=== PATIENT | male | born 1980 | race American Indian/Alaskan Native ===

== ENCOUNTER 2019-05-13 08:25 | Emergency (ER) | payer SELFPAY ==
[2019-05-13] MEDS ORDERED: NACL 0.9% 1000 ML 1,000 ML IV ONE (08:53)
[2019-05-13] MEDS ORDERED: DILAUDID IV ONE (08:53)
--- NOTE | 2019-05-13 08:55 | Emergency Department Report ---
ED Male HPI - General Chief complaint: Abdominal Pain Stated complaint: L TESTICLE PAIN/SWOLLEN Time Seen by Provider: 05/13/19 08:34 Source: patient, EMS (EMS documentation not available at the time of chart dictation) Mode of arrival: Stretcher Limitations: No Limitations, Other (the patient is a poor historian) - History of Present Illness Initial comments: This is a 39-year-old gentleman. Patient reportedly has a history of gonorrhea and psychiatric disease. Patient presents to the ER with a complaint of testicular pain. He indicates that there is no trauma. The pain has been present for 1-2 weeks. The pain is on the left side. It radiates to the left flank. He cannot describe the nature of the pain. He indicates the pain increases with palpation and decreases with rest. Positive dysuria. No vomiting. Patient denies other injuries other complaints. MD Complaint: testicle pain, testicle swelling Location: left testicle Radiation: other Quality: other Improves with: rest, other Worsens with: urination, palpation, movement new sexual partner - Related Data Sexually active: Yes Previous Rx's Medication Instructions Recorded Last Taken Type Acetaminophen [Non-Aspirin Extra 500 mg PO Q6HR PRN #30 tablet 05/13/19 Unknown Rx Strength] DOXYCYCLINE Hyclate [Vibramycin] 100 mg PO Q12HR #20 capsule 05/13/19 Unknown Rx Ibuprofen [Motrin] 600 mg PO Q8H PRN #30 tablet 05/13/19 Unknown Rx Ondansetron [Zofran Odt] 4 mg PO Q8HR PRN #20 tab.rapdis 05/13/19 Unknown Rx Allergies Allergy/AdvReac Type Severity Reaction Status Date / Time No Known Allergies Allergy Unverified 02/22/14 19:14 ED Review of Systems ROS: Stated complaint: L TESTICLE PAIN/SWOLLEN Other details as noted in HPI Constitutional: denies: fever Eyes: denies: eye discharge ENT: denies: epistaxis Respiratory: denies: cough Cardiovascular: denies: chest pain Gastrointestinal: abdominal pain Genitourinary: testicular pain Musculoskeletal: back pain Neurological: weakness Psychiatric: anxiety ED Past Medical Hx - Past Medical History Previous Medical History?: Yes Additional medical history: Gonorrhea - Surgical History Past Surgical History?: No - Social History Smoking Status: Current Every Day Smoker Substance Use Type: Alcohol, Marijuana - Medications Home Medications: Home Medications Medication Instructions Recorded Confirmed Last Taken Type Acetaminophen [Non-Aspirin Extra 500 mg PO Q6HR PRN #30 tablet 05/13/19 Unknown Rx Strength] DOXYCYCLINE Hyclate [Vibramycin] 100 mg PO Q12HR #20 capsule 05/13/19 Unknown Rx Ibuprofen [Motrin] 600 mg PO Q8H PRN #30 tablet 05/13/19 Unknown Rx Ondansetron [Zofran Odt] 4 mg PO Q8HR PRN #20 tab.rapdis 05/13/19 Unknown Rx ED Physical Exam - General Limitations: No Limitations General appearance: alert, anxious, in distress - Head Head exam: Present: atraumatic, normocephalic - Eye Eye exam: Present: normal appearance, EOMI. Absent: nystagmus - ENT ENT exam: Present: normal exam, normal orophraynx, mucous membranes moist, normal external ear exam - Neck Neck exam: Present: normal inspection, full ROM. Absent: tenderness, meningismus - Respiratory Respiratory exam: Present: normal lung sounds bilaterally. Absent: respiratory distress - Cardiovascular Cardiovascular Exam: Present: normal rhythm, tachycardia, normal heart sounds. Absent: systolic murmur, diastolic murmur, rubs, gallop - GI/Abdominal GI/Abdominal exam: Present: soft. Absent: distended, tenderness, guarding, rebound, rigid, pulsatile mass - Rectal Rectal exam: Present: deferred - exam: Present: testicular tenderness, scrotal swelling, other (there is intact cremasteric reflex bilaterally. There is left-sided testicular tenderness. Chaperoned by stock shaper Jesús York) - Extremities Exam Extremities exam: Present: normal inspection, full ROM, other (2+ pulses noted in the bilateral upper, lower extremities. There is no long bony tenderness. The pelvis is stable. Muscular compartments are soft.). Absent: pedal edema, joint swelling, calf tenderness - Back Exam Back exam: Present: normal inspection, full ROM. Absent: tenderness, CVA tenderness (R), CVA tenderness (L), paraspinal tenderness, vertebral tenderness - Neurological Exam Neurological exam: Present: alert, other (there is no facial droop. The tongue is midline. The extraocular movements are intact bilaterally. 5/ 5 strength bilateral upper, lower extremities. Sensation intact to light touch bilateral upper, lower extremities bilaterally. Sensation is intact to light touch in the bilateral V1, V2, V3 distribution.) - Psychiatric Psychiatric exam: Present: anxious - Skin Skin exam: Present: warm, dry, intact, normal color. Absent: rash ED Course Vital Signs 05/13/19 05/13/19 08:31 10:34 Temperature 98.8 F Pulse Rate 102 H 87 Respiratory 24 16 Rate Blood Pressure 142/94 Blood Pressure 128/93 [Right] O2 Sat by Pulse 98 99 Oximetry - Reevaluation(s) Reevaluation #1: 05/13/19 09:46 Differential diagnosis, including but not limited to: Epididymitis, orchitis, testicular torsion, urinary tract infection Assessment and plan: 39-year-old gentleman with left-sided testicular pain and swelling, onset isn't consistent, he told the triage nurse 2 weeks, he totally one week, and then he told me 2 days. The patient is somewhat of a poor historian. He is afebrile, and tachycardic, likely secondary to pain and anxiety. Leukocytosis likely secondary to pain and anxiety, and is likely a stress reaction. We will treat his pain, obtain screening laboratory studies, testicular duplex study, and reassess once data points have resulted. Reevaluation #2: 05/13/19 10:28 Ultrasound confirms left-sided epididymitis. Urinalysis pending at this time. Empiric antibiotics ordered. Reevaluation #3: 05/13/19 10:33 Tachycardia resolved. Patient now sleeping and stretcher. Reevaluation #4: 05/13/19 12:11 Urinalysis reviewed and appreciated. Patient sleeping and stretcher. Patient is suitable for a trial of outpatient management. ED Medical Decision Making - Lab Data Result diagrams: 05/13/19 08:59 05/13/19 08:59 Vital Signs 05/13/19 08:31 Temperature 98.8 F Pulse Rate 102 H Respiratory 24 Rate Blood Pressure 142/94 O2 Sat by Pulse 98 Oximetry - Radiology Data Radiology results: pending Critical care attestation.: If time is entered above; I have spent that time in minutes in the direct care of this critically ill patient, excluding procedure time. ED Disposition Clinical Impression: Epididymitis Disposition: DC-01 TO HOME OR SELFCARE Is pt being admited?: No Does the pt Need Aspirin: No Condition: Stable Instructions: Epididymitis (ED) Additional Instructions: Ultrasound of the left sided testicle suggested left-sided testicular infection/epididymitis, typically considered a sexually-transmitted disease. Take the antibiotics as directed. Cultures were sent today, and was ultimately available in the next 3-5 days. Have a primary care doctor or urology speciali st contact the medical records department to obtain culture results. Recommend abstinence from sexual activity, also recommend outpatient follow-up with the primary care doctor or the health department, as patient will require outpatient testing for other STDs, such as syphilis, hepatitis, and HIV. Recommend that any sexual contact within the past 6 months also be treated/evaluated for possible sexually transmitted diseases. Take the pain medication, nausea medication is needed /directed, recommend that patient where undergarments that are supportive, and loose fitting clothing around the testicle, and avoid heavy lifting and strenuous physical activities. Recommend follow-up with the primary care doctor or urology specialist within the next 5-7 days. Return to the emergency room right away with new, worsening or different symptoms, or symptoms not present on the initial emergency room evaluation. Prescriptions: Ibuprofen [Motrin] 600 mg PO Q8H PRN #30 tablet PRN Reason: Pain Acetaminophen [Non-Aspirin Extra Strength] 500 mg PO Q6HR PRN #30 tablet PRN Reason: Pain , Severe (7-10) DOXYCYCLINE Hyclate [Vibramycin] 100 mg PO Q12HR #20 capsule Ondansetron [Zofran Odt] 4 mg PO Q8HR PRN #20 tab.rapdis PRN Reason: Nausea Referrals: JIMENA PICHARDO MD [Primary Care Provider] - 3-5 Days [facility] [Provider Group] - 3-5 Days Forms: STI Treatment and Prevention
[2019-05-13 09:11] LABS: Hematocrit 36.5 % (35.5-45.6); Hemoglobin 12.5 gm/dl (11.8-15.2); Mean Corpuscular HGB Conc 34 % (32-34); Mean Corpuscular Volume 94 fl (84-94); Platelet Count 263 K/mm3 (140-440); Red Blood Count 3.87 M/mm3 (3.65-5.03); Red Cell Distribution Width 13.6 % (13.2-15.2)
[2019-05-13 09:47] LABS: Alanine Aminotransferase 9 units/L (7-56); Albumin 3.9 g/dL (3.9-5); BUN/Creatinine Ratio 12; Blood Urea Nitrogen 11 mg/dL (9-20); Calcium 9.2 mg/dL (8.4-10.2); Hemolysis Index 2
[2019-05-13 09:51] LABS: Bilirubin,Direct < 0.2 mg/dL (0-0.2)
[2019-05-13] MEDS ORDERED: K-DUR PO ONE (10:03)
--- NOTE | 2019-05-13 10:24 | Ultrasound Report ---
SCROTAL ULTRASOUND WITH DOPPLER HISTORY: left testicular pain COMPARISON: None. TECHNIQUE: Grayscale, color and spectral Doppler images were obtained of the scrotum. FINDINGS: RIGHT: Right testicle: The right testicle is slightly heterogeneous. No focal mass or calcifications. Right testicular size: 4.5 x 2.5 x 2.6 cm. Right epididymis: No significant abnormality. LEFT: Left testicle: The left testicle is slightly heterogeneous. No focal mass or calcifications Left testicular size: 4.3 x 2.7 x 2.8 cm. Left epididymis: The left epididymis appears thickened with hyperemia on color Doppler interrogation. Additional findings: A small right hydrocele and a moderate left hydrocele are identified. No interna l complexity. Spectral Doppler waveforms demonstrate arterial flow to both testicles. IMPRESSION: Findings suggestive of left epididymitis. Please correlate with the patient's clinical presentation. Bilateral hydroceles, left greater than right. No evidence for mass or torsion. Signer Name: Crispin Guerin Jr, MD Signed: 05/13/2019 10:20 AM Workstation Name: [id number]
[2019-05-13] MEDS ORDERED: VIBRAMYCIN PO ONE (10:27)
[2019-05-13] MEDS ORDERED: FLAGYL PO ONE (10:27)
[2019-05-13 10:34] VITALS: BP 128/93
[2019-05-13] MEDS ORDERED: ROCEPHIN 500 MG in NACL 0.9% 50 ML IV STA (10:34)
[2019-05-13 11:47] LABS: Bacteria,Urine 1+ /HPF (Negative); Bilirubin,Urine NEG (Negative); Blood,Urine NEG (Negative); Color,Urine Yellow (Yellow); Mucus,Urine 2+ /HPF
== END 2019-05-13 12:30 | disposition home or self-care (01) ==
LOC: ED 08:25
DX: N45.1 Epididymitis (principal); F17.200 Nicotine dependence, unspecified, uncomplicated; F12.10 Cannabis abuse, uncomplicated
CPT/HCPCS: 36415; 80048; 80076; 81001; 82550; 83735; 85027; 87086; 93975; 96361; 96365; 96375; 99285; J0696; J1170; J7030; 80320; G0480